=== PATIENT | male | born 1940 | race Caucasian/White ===

== ENCOUNTER 2020-01-30 21:53 | Emergency (ER) | payer MEDICARE, SELFPAY ==
[2020-01-30 21:57] VITALS: BP 185/86; PULSE 73; RESP 20; TEMP 36.4; O2SAT 98
--- NOTE | 2020-01-30 22:22 | ED.EPISTAXIS ---
HPI - Epistaxis General Chief complaint: Epistaxis Stated complaint: nose bleed Time Seen by Provider: 01/30/20 22:04 Source: RN notes reviewed History of Present Illness HPI Narrative: Patient presents emergency department from home for epistaxis. Patient states that yesterday morning he began to have a nosebleed out of his right nare. States that time he gone to [facility] and had a nasal clamp placed bleeding stopped on its own had any return home. States the nose began to bleed again last night and again placed a clamp with resolution of the symptoms. Patient states that he had had no bleeding till this evening when he began nosebleed around 6:00. At that time he put the clamp on and came to the hospital for further evaluation. Patient denies any bleeding on the left nare he states he is currently on a baby aspirin only he denies any trauma to the nose or any other symptoms. Related Data Home Medications Medication Instructions Recorded Confirmed aspirin [Aspirin Low Dose] 81 mg PO DAILY 01/30/20 atorvastatin 80 mg PO HS 01/30/20 metoprolol tartrate 25 mg PO DAILY 01/30/20 Allergies Allergy/AdvReac Type Severity Reaction Status Date / Time Penicillins Allergy Unknown Unknown Verified 01/30/20 21:57 Review of Systems Review of Systems: Narrative: Gen.: Denies fevers or chills HEENT: See HPI Neuro: Denies numbness, tingling, weakness Skin: Denies rash Endo: Denies DM PMFSH Past Medical History Medical History (Updated 01/30/20 @ 22:23 by Sharan Becerril DO) Hypertension Social History Social History (Updated 01/30/20 @ 22:23 by Sharan Becerril DO) Smoking status: Never smoker Exam Narrative: Exam Narrative: APPEARANCE: No acute distress, nontoxic, resting in bed EYES: EOMI HEENT: Normocephalic, atraumatic, no blood seen in left nare, dried blood in right nare with no active bleeding, or mucosa moist, no blood seen in posterior pharynx RESPIRATORY: No respiratory distress MUSCULOSKELETAl: Moves all extremities. NEURO: Awake and alert. Following commands, speech normal, no focal deficits SKIN:: Warm, dry. No rashes lesions or abrasions PSYCHIATRIC: Normal affect/mood, Course Course Emergency Course: Patient with no further bleeding while in the emergency department. Discussed with patient results of workup and diagnosis. Discussed need for follow-up with primary care, proper use of medication, and reasons to return to the emergency department. Patient understands and agrees to current treatment plan Vital Signs Vital signs: Vital Signs Temperature 97.6 F 01/30/20 21:57 Pulse Rate 73 01/30/20 21:57 Respiratory Rate 01/30/20 21:57 Blood Pressure 185/86 H 01/30/20 21:57 Pulse Oximetry 98 01/30/20 21:57 Temperature 97.6 F 01/30/20 21:57 Pulse Rate 73 01/30/20 21:57 Respiratory Rate 01/30/20 21:57 Blood Pressure 185/86 H 01/30/20 21:57 Pulse Oximetry 98 01/30/20 21:57 Discharge Plan Discharge Patient Disposition: Home, Self-Care Condition: Stable Instructions: Antibiotic Form, Nosebleed (ED) Additional Instructions: Return for any further nosebleed or any other symptoms of concern Prescriptions: New sodium chloride [Nicollet Nasal] 0.65 % aerosol,spray 2 spray NASAL TID 3 Days RF: 0 No Action atorvastatin 80 mg tablet 80 mg PO HS RF: 0 aspirin [Aspirin Low Dose] 81 mg Tablet,Delayed Release (Dr/Ec) 81 mg PO DAILY RF: 0 metoprolol tartrate 25 mg tablet 25 mg PO DAILY RF: 0 Follow-up/Referrals: Gino La MD [Physician] - (Follow-up in 2 to 3 days for further treatment and evaluation) PHYSICIAN NOT ON STAFF,NONSTAFF [Primary Care Provider] - Time of Disposition: 23:08
[2020-01-30 23:17] VITALS: BP 158/97; PULSE 66; RESP 20; O2SAT 96
== END 2020-01-30 23:20 | disposition home or self-care (01) ==
PROVIDERS: Emergency Provider Emergency Medicine
DX: R04.0 Epistaxis (principal); I10 Essential (primary) hypertension
CPT/HCPCS: 99283

== ENCOUNTER 2020-08-28 09:26 | Outpatient (CLI) | payer MEDICARE, SELFPAY ==
[2020-08-28 09:51] LABS: Basophils Percent Auto 0.2 % (0.2-1.2); Eosinophils Absolute Auto 0.1 K/mm3 (0-0.3); Eosinophils Percent Auto 1.5 % (0-4.4); Hematocrit 43.8 % (42.0-52.0); Hemoglobin 14.8 g/dL (14.0-18.0); Immature Granulocyte Absolute 0.02 K/mm3 (0.00-0.031); Immature Granulocyte Percent A 0.3 % (0-0.5); Lymphocytes Absolute Auto 2.71 K/mm3 (0.9-3.2); Lymphocytes Percent Auto 45.9 % (18.3-44.2); Mean Corpuscular HGB Conc 33.8 g/dl (32-36); Mean Corpuscular Hemoglobin 31.3 pg (26-34); Mean Corpuscular Volume 92.6 fl (80-100); Mean Platelet Volume 10.3 fl (7.4-10.4); Monocytes Absolute Auto 0.7 K/mm3 (0.1-0.6); Monocytes Percent Auto 12.4 % (2.6-8.5); Neutrophils Absolute Auto 2.4 K/mm3 (1.3-6.7); Neutrophils Percent Auto 39.7 % (45.5-73.1); Platelet Count Result 142 k/mm3 (150-375); Red Blood Count 4.73 M/mm3 (4.6-6.20); Red Cell Distribution Width 13.9 % (11.5-14.5); White Blood Count 5.9 K/mm3 (4.5-10.0)
[2020-08-28 10:07] LABS: Anion Gap 5 mmol/L (8-16); Blood Urea Nitrogen 19 mg/dL (9-20); Calcium 9.2 mg/dL (8.4-10.2); Carbon Dioxide 29 mmol/L (22-30); Chloride 107 mmol/L (98-107); Estimated Glomerular Filt Rate > 60; Glucose 121 mg/dL (75-110); Potassium 4.4 mmol/L (3.4-5.0); Sodium 141 mmol/L (137-145)
== END 2020-08-28 09:27 | disposition home or self-care (01) ==
PROVIDERS: PCP Internal Medicine; Visit Provider Internal Medicine Cardiovascular Disease
DX: I25.10 Atherosclerotic heart disease of native coronary artery without angina pectoris (principal); I48.91 Unspecified atrial fibrillation
CPT/HCPCS: 36415; 80048; 84443; 85025

== ENCOUNTER 2022-03-13 07:53 | Outpatient (CLI) | payer MEDICARE, SELFPAY ==
[2022-03-13 08:14] LABS: Basophils Percent Auto 0.4 % (0.2-1.2); Eosinophils Absolute Auto 0.1 K/mm3 (0-0.3); Eosinophils Percent Auto 1.3 % (0-4.4); Hematocrit 41.7 % (42.0-52.0); Hemoglobin 13.7 g/dL (14.0-18.0); Immature Granulocyte Absolute 0.02 K/mm3 (0.00-0.031); Immature Granulocyte Percent A 0.4 % (0-0.5); Lymphocytes Absolute Auto 2.06 K/mm3 (0.9-3.2); Lymphocytes Percent Auto 45.9 % (18.3-44.2); Mean Corpuscular HGB Conc 32.9 g/dl (32-36); Mean Corpuscular Hemoglobin 31.6 pg (26-34); Mean Corpuscular Volume 96.3 fl (80-100); Mean Platelet Volume 10.2 fl (7.4-10.4); Monocytes Absolute Auto 0.5 K/mm3 (0.1-0.6); Neutrophils Absolute Auto 1.8 K/mm3 (1.3-6.7); Platelet Count Result 145 k/mm3 (150-375); Red Blood Count 4.33 M/mm3 (4.6-6.20); Red Cell Distribution Width 13.8 % (11.5-14.5); White Blood Count 4.5 K/mm3 (4.5-10.0)
[2022-03-13 08:23] LABS: Alanine Aminotransferase 27 U/L (6-50); Albumin Level 4.5 g/dL (3.5-5.1); Alkaline Phosphatase 42 U/L (38-126); Anion Gap 7 mmol/L (8-16); Aspartate Amino Transferase 33 U/L (17-59); Bilirubin,Total 0.9 mg/dL (0.2-1.3); Blood Urea Nitrogen 14 mg/dL (9-20); Calcium 8.7 mg/dL (8.4-10.2); Carbon Dioxide 27 mmol/L (22-30); Chloride 107 mmol/L (98-107); Estimated Glomerular Filt Rate > 60; Glucose 122 mg/dL (65-110); Lactate Dehydrogenase 538 U/L (313-618); Potassium 4.3 mmol/L (3.4-5.0); Sodium 141 mmol/L (137-145)
== END 2022-03-13 07:54 | disposition home or self-care (01) ==
LOC: ANHLAB 07:57
PROVIDERS: PCP Internal Medicine
DX: C84.09 Mycosis fungoides, extranodal and solid organ sites (principal); Z79.899 Other long term (current) drug therapy
CPT/HCPCS: 36415; 80053; 83615; 85025

== ENCOUNTER 2022-05-20 07:56 | Outpatient (CLI) | payer MEDICARE, SELFPAY ==
[2022-05-20 08:36] LABS: Basophils Percent Auto 0.2 % (0.2-1.2); Eosinophils Absolute Auto 0.1 K/mm3 (0-0.3); Hematocrit 42.9 % (42.0-52.0); Immature Granulocyte Absolute 0.04 K/mm3 (0.00-0.031); Immature Granulocyte Percent A 0.8 % (0-0.5); Lymphocytes Absolute Auto 2.11 K/mm3 (0.9-3.2); Mean Corpuscular HGB Conc 32.6 g/dl (32-36); Mean Corpuscular Volume 98.2 fl (80-100); Mean Platelet Volume 10.1 fl (7.4-10.4); Monocytes Absolute Auto 0.7 K/mm3 (0.1-0.6); Monocytes Percent Auto 14.3 % (2.6-8.5); Neutrophils Absolute Auto 2.1 K/mm3 (1.3-6.7); Neutrophils Percent Auto 41.7 % (45.5-73.1); Platelet Count Result 155 k/mm3 (150-375); Red Blood Count 4.37 M/mm3 (4.6-6.20); Red Cell Distribution Width 14.1 % (11.5-14.5)
[2022-05-20 08:51] LABS: Alanine Aminotransferase 33 U/L (6-50); Albumin Level 4.7 g/dL (3.5-5.1); Alkaline Phosphatase 57 U/L (38-126); Anion Gap 16 mmol/L (8-16); Aspartate Amino Transferase 37 U/L (17-59); Bilirubin,Total 0.7 mg/dL (0.2-1.3); Blood Urea Nitrogen 16 mg/dL (9-20); Calcium 8.6 mg/dL (8.4-10.2); Carbon Dioxide 28 mmol/L (22-30); Chloride 99 mmol/L (98-107); Estimated Glomerular Filt Rate > 60; Glucose 130 mg/dL (65-110); Potassium 4.4 mmol/L (3.4-5.0); Sodium 143 mmol/L (137-145)
== END 2022-05-20 07:57 | disposition home or self-care (01) ==
LOC: ANHLAB 08:08
PROVIDERS: PCP Internal Medicine; Visit Provider Internal Medicine Cardiovascular Disease
DX: R94.39 Abnormal result of other cardiovascular function study (principal); I25.10 Atherosclerotic heart disease of native coronary artery without angina pectoris
CPT/HCPCS: 36415; 80053; 85025

== ENCOUNTER 2022-06-02 11:45 | Outpatient (CLI) | payer MEDICARE, SELFPAY ==
--- NOTE | ~2022-06-02 | XR_ITS ---
XR sacrum coccyx min 2V DATE: 06/02/2022 12:06 INDICATION: Coccyx pain for 2 months. No injury. TECHNIQUE: AP, angled AP and lateral views COMPARISON: None FINDINGS: No fracture or bone destruction of the sacrum or coccyx is evident. Normal alignment at the pubic symphysis and sacroiliac joints. IMPRESSION: Negative Reviewed, dictated and finalized at location B. IMPRESSION: Negative
== END 2022-06-02 11:46 | disposition home or self-care (01) ==
PROVIDERS: PCP Internal Medicine; Visit Provider Internal Medicine
DX: M53.3 Sacrococcygeal disorders, not elsewhere classified (principal)
CPT/HCPCS: 72220

== ENCOUNTER 2022-07-01 07:54 | Outpatient (CLI) | payer MEDICARE, SELFPAY ==
[2022-07-01 08:25] LABS: Anion Gap 14 mmol/L (8-16); Blood Urea Nitrogen 16 mg/dL (9-20); Calcium 9.1 mg/dL (8.4-10.2); Carbon Dioxide 28 mmol/L (22-30); Chloride 100 mmol/L (98-107); Estimated Glomerular Filt Rate > 60; Glucose 133 mg/dL (65-110); Potassium 4.1 mmol/L (3.4-5.0); Sodium 142 mmol/L (137-145)
== END 2022-07-01 07:55 | disposition home or self-care (01) ==
LOC: ANHLAB 07:55
PROVIDERS: PCP Internal Medicine; Visit Provider Internal Medicine Cardiovascular Disease
DX: I25.10 Atherosclerotic heart disease of native coronary artery without angina pectoris (principal)
CPT/HCPCS: 36415; 80048

== ENCOUNTER 2022-09-18 08:15 | Outpatient (CLI) | payer MEDICARE, SELFPAY ==
[2022-09-18 08:41] LABS: Basophils Percent Auto 0.2 % (0.2-1.2); Eosinophils Absolute Auto 0.1 K/mm3 (0-0.3); Eosinophils Percent Auto 1.7 % (0-4.4); Hemoglobin 14.3 g/dL (14.0-18.0); Immature Granulocyte Absolute 0.04 K/mm3 (0.00-0.031); Immature Granulocyte Percent A 0.9 % (0-0.5); Lymphocytes Absolute Auto 2.15 K/mm3 (0.9-3.2); Lymphocytes Percent Auto 46.7 % (18.3-44.2); Mean Corpuscular Hemoglobin 32.6 pg (26-34); Mean Corpuscular Volume 95.9 fl (80-100); Mean Platelet Volume 10.1 fl (7.4-10.4); Monocytes Absolute Auto 0.6 K/mm3 (0.1-0.6); Monocytes Percent Auto 13.9 % (2.6-8.5); Neutrophils Absolute Auto 1.7 K/mm3 (1.3-6.7); Neutrophils Percent Auto 36.6 % (45.5-73.1); Platelet Count Result 151 k/mm3 (150-375); Red Blood Count 4.38 M/mm3 (4.6-6.20); Red Cell Distribution Width 13.5 % (11.5-14.5); White Blood Count 4.6 K/mm3 (4.5-10.0)
[2022-09-18 08:52] LABS: Alanine Aminotransferase 30 U/L (6-50); Albumin Level 4.6 g/dL (3.5-5.1); Alkaline Phosphatase 45 U/L (38-126); Anion Gap 7 mmol/L (8-16); Aspartate Amino Transferase 31 U/L (17-59); Blood Urea Nitrogen 15 mg/dL (9-20); Carbon Dioxide 30 mmol/L (22-30); Chloride 105 mmol/L (98-107); Estimated Glomerular Filt Rate > 60; Glucose 117 mg/dL (65-110); Potassium 4.3 mmol/L (3.4-5.0); Sodium 142 mmol/L (137-145)
== END 2022-09-18 08:16 | disposition home or self-care (01) ==
LOC: ANHLAB 08:22
PROVIDERS: PCP Internal Medicine
DX: Z79.899 Other long term (current) drug therapy (principal)
CPT/HCPCS: 36415; 80053; 85025

== ENCOUNTER 2023-03-27 09:23 | Outpatient (CLI) | payer MEDICARE, SELFPAY ==
[2023-03-27 09:52] LABS: Anion Gap 6 mmol/L (8-16); Blood Urea Nitrogen 14 mg/dL (9-20); Calcium 9.2 mg/dL (8.4-10.2); Carbon Dioxide 30 mmol/L (22-30); Chloride 104 mmol/L (98-107); Estimated Glomerular Filt Rate > 60; Glucose 125 mg/dL (65-110); Potassium 4.4 mmol/L (3.4-5.0); Sodium 140 mmol/L (137-145)
== END 2023-03-27 09:24 | disposition home or self-care (01) ==
LOC: ANHLAB 09:25
PROVIDERS: PCP Internal Medicine; Visit Provider Internal Medicine Cardiovascular Disease
DX: I42.0 Dilated cardiomyopathy (principal)
CPT/HCPCS: 36415; 80048

== ENCOUNTER 2023-05-24 10:17 | Emergency (ER) | payer MEDICARE, SELFPAY ==
[2023-05-24 10:53] VITALS: BP 140/84; PULSE 120; RESP 16; TEMP 36.8; O2SAT 99
[2023-05-24] MEDS: LIDOCAINE HCL 2% JELLY 5 ML TUBE 1 APPLIC MUCOUS MEM (12:43)
--- NOTE | 2023-05-24 13:10 | ED.GENADULT ---
HPI - General Adult General Chief complaint: Nausea/Vomiting/Diarrhea Stated complaint: n/v/d Time Seen by Provider: 05/24/23 11:59 History of Present Illness HPI narrative: This is an 82-year-old male, with past history of hemorrhoids and A-fib on Xarelto, who presents emergency department complaining of painful hemorrhoids for the past 3 days. He states the hemorrhoids are painful, described as burning and intermittently sharp, rated 5-7/10. He has some bright red blood with wiping but has not had significant bleeding. He has no other complaints at this time. Related Data Home Medications Medication Instructions Recorded Confirmed metoprolol tartrate 25 mg tablet 25 mg PO DAILY 01/30/20 04/02/23 cetirizine 10 mg capsule (Allergy 10 mg PO DAILY PRN 04/02/23 04/02/23 Relief (cetirizine)) rivaroxaban 20 mg tablet (Xarelto) 20 mg PO DAILY 04/02/23 04/02/23 sacubitril 49 mg-valsartan 51 mg 1 tablet PO BID 04/02/23 04/02/23 tablet (Entresto) Allergies Allergy/AdvReac Type Severity Reaction Status Date / Time Penicillins Allergy Unknown Unknown Verified 04/02/23 14:20 Review of Systems Review of Systems: CONSTITUTIONAL: Denies fever, chills, or sweats. CARDIOVASCULAR: Denies chest pain, palpitations, or edema. RESPIRATORY: Denies cough or dyspnea. GASTROINTESTINAL: Loose stools with hemorrhoids and bright red blood when wiping denies abdominal pain, nausea, vomiting GENITOURINARY: Denies dysuria or hematuria. SKIN: Denies rash or itching. MUSCULOSKELETAL: Denies back pain, joint pain, or myalgia. NEUROLOGIC: Denies headache, numbness, dizziness, or weakness. PSYCHIATRIC: Denies anxiety or depression. PMFSH Past Medical History Medical History (Updated 05/24/23 @ 22:23 by Chidi Roa MD) Afib Hypertension Social History Social History Smoking status: Never smoker Alcohol intake: never Substance use: never Exam Narrative: GENERAL: Well-developed, well-nourished, and in no acute distress. HEAD: Normocephalic, atraumatic. EYES: PERRLA and EOMI. ENT: Nares clear, no rhinorrhea or epistaxis. Mucous membranes moist. Oropharynx without tonsillar hypertrophy exudate or other lesions. Bilateral TMs pearly valle nonbulging NECK: Supple. No adenopathy or masses. No carotid bruits or JVD CHEST: Clear to auscultation. No respiratory distress. No wheezes rales or rhonchi HEART: Regular rate and rhythm. No murmur heard. Normal peripheral pulses. ABDOMEN: Soft, nontender, nondistended, normal active bowel sounds. RECTAL: 2 external hemorrhoids are noted at the 3 and 9 o'clock position. An internal hemorrhoid is also noted. There is no significant erythema or gangrenous changes noted EXTREMITIES: Normal range of motion. No edema. SKIN: Warm, dry, no rash. NEURO: Alert and oriented x3. Moving all 4 limbs purposefully. PSYCH: Normal mood and affect. Course Course Emergency Course: 13:15 - I was able to reduce the patient's internal hemorrhoid without bleeding or significant pain. Will discharge with recommendations for hydrocortisone and general surgery follow-up. Discussed return and emergency precautions including signs/symptoms of significant bleeding and infection. The patient was offered IV fluids for his tachycardia. 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 He denies chest pain, shortness of breath or lightheadedness. Vital Signs Vital signs: Vital Signs Temperature 98.3 F 05/24/23 10:53 Pulse Rate 120 H 05/24/23 10:53 Respiratory Rate 16 05/24/23 10:53 Blood Pressure 140/84 05/24/23 10:53 Pulse Oximetry 99 05/24/23 10:53 Temperature 98.3 F 05/24/23 10:53 Pulse Rate 87 05/24/23 13:29 Respiratory Rate 16 05/24/23 13:29 Blood Pressure 120/71 05/24/23 13:29 Pulse Oximetry 98 05/24/23 13:29 Medical Decision Making MDM Narrative
[2023-05-24 13:29] VITALS: BP 120/71; PULSE 87; RESP 16; O2SAT 98
== END 2023-05-24 13:36 | disposition home or self-care (01) ==
PROVIDERS: Emergency Provider Preventive Medicine Aerospace Medicine; PCP Internal Medicine
DX: K64.8 Other hemorrhoids (principal); I48.91 Unspecified atrial fibrillation; I10 Essential (primary) hypertension; Z79.01 Long term (current) use of anticoagulants
CPT/HCPCS: 99283

== ENCOUNTER 2023-06-15 09:01 | Outpatient (CLI) | payer MEDICARE, SELFPAY ==
--- NOTE | 2023-06-15 09:10 | ECG_ITS ---
Measurements Intervals [place] Rate: 113 P: MS: 0 QRS: -29 QRSD: 111 T: 124 QT: 367 QTc: 504 Interpretive Statements ATRIAL FIBRILLATION WITH RAPID VENTRICULAR RESPONSE POOR R-WAVE PROGRESSION NONSPECIFIC T-WAVE ABNORMALITY ABNORMAL ECG NO PREVIOUS ECG AVAILABLE FOR COMPARISON Electronically Signed On 06-15-2023 13:36:36 CDT by Ziyad Parks M.D.
== END 2023-06-15 09:02 | disposition home or self-care (01) ==
LOC: ANHSURGERY 09:04
PROVIDERS: PCP Internal Medicine; Visit Provider Surgery
DX: I10 Essential (primary) hypertension (principal); Z01.818 Encounter for other preprocedural examination; R94.31 Abnormal electrocardiogram [ECG] [EKG]; I48.91 Unspecified atrial fibrillation
CPT/HCPCS: 93005

== ENCOUNTER 2023-06-18 00:51 | Day surgery (SDC) | payer MEDICARE, SELFPAY ==
[2023-06-11 09:50] VITALS: BMI 27.5
[2023-06-18 07:45] VITALS: BP 143/83; PULSE 119; RESP 20; TEMP 36; O2SAT 98
[2023-06-18] MEDS: LACTATED RINGERS 1,000 ML 150 ML IV CONT (07:47)
--- NOTE | 2023-06-18 08:59 | P.PNAN_ITS ---
Anes - Initial Pre Proc Eval Procedure: Operation Date: 06/18/23 09:00 Proposed Procedures p Screening Colonoscopy - Srinivasa Crabtree DO Date/Time: 06/18/23 08:59 Surgeon: Srinivasa Crabtree DO Pre Op Diagnosis: neoplasm screening Patient Data Age: 82 Gender: M Height: 1.91 m Weight: 97.5 kg Last Vital Signs Temp 96.8 F L 06/18/23 07:45 Pulse 119 H 06/18/23 07:45 Resp 20 06/18/23 07:45 BP 143/83 H 06/18/23 07:45 Pulse Ox 98 06/18/23 07:45 O2 Del Method Room Air 06/18/23 07:45 Allergies Allergy/AdvReac Type Severity Reaction Status Date / Time Penicillins Allergy Unknown LIP Verified 06/18/23 07:44 SWELLING Home Medications Medication Instructions Recorded Confirmed Type metoprolol tartrate 25 mg tablet 25 mg PO HS 01/30/20 06/18/23 History cetirizine 10 mg capsule (Allergy 10 mg PO DAILY PRN Allergy Symptoms 04/02/23 06/18/23 History Relief (cetirizine)) rivaroxaban 20 mg tablet (Xarelto) 20 mg PO DAILY 04/02/23 06/18/23 History sacubitril 49 mg-valsartan 51 mg 1 tablet PO BID 04/02/23 06/18/23 History tablet (Entresto) minerals 1 tablet PO DAILY 06/11/23 06/18/23 History Patient hx anesthesia problems: none Family hx anesthesia problems: none Results Review: All pre-operative results and documents have been reviewed as part of the pre- operative evaluation. [facility] Past Medical History Medical History (Updated 06/04/23 @ 13:59 by Laura Mauro) Afib Hypertension Surgical History Surgical History (Updated 06/04/23 @ 13:55 by Laura Mauro) S/P triple vessel bypass 2018 Social History Social History (Updated 06/04/23 @ 13:43 by Tasia Mdaera [facility]) Smoking packs per day: 2 Smoking cigarettes per day: 40.0 Years smoked: 24 Smoking pack-years: 48.00 Smoking status: Former smoker Tobacco type: cigarettes Additional smoking assessment comments: CONTINUES CIGAR 2/WEEK Alcohol intake: current Alcohol use details: 12 OZ/WEEK Substance use: never Substance use type: does not use Living arrangements: with family Additional living arrangements comments: Occupation/Education: retired Spiritual care concerns: No Anes - Eval Final PreProcedure Day of Procedure 06/18/23 08:59 Patient weight: normal Heart: irregular rhythm Lungs: clear to auscultation Airway: Mallampati scale class II Neurological: alert and oriented Last oral intake: >/= 8 hours ASA classification: III Emergent: no Anesthetic plan: proceed Anesthesia type and monitoring: general GIVS and standard monitoring Results Review: All pre-operative results and documents have been reviewed as part of the pre- operative evaluation. Informed Consent: The patient's anesthetic plan and its attendant risks and benefits were discussed with the patient/family/POA. Questions were solicited and answers provided to the satisfaction of the patient/family/POA.
--- NOTE | 2023-06-18 09:03 | PM.IMHP ---
H&P: HPI History of Present Illness Date/Time: 06/18/23 09:03 Chief Complaint: Internal hemorrhoids Narrative: This is an 82-year-old man who presents with intermittent prolapsing internal hemorrhoids. He was having significant discomfort with them but the hemorrhoids have since improved. He denies any rectal bleeding currently. He has had colonoscopies in the past. He now presents for follow-up colonoscopy due to the hemorrhoids. He denies family history of colon cancer. Review of Systems Review of Systems: All systems reviewed & are unremarkable except as noted in HPI and below Constitutional: Constitutional: Denies chills, Denies fever(s), Denies headache(s) and Denies weight loss Eyes: Eyes: Denies change in vision ENT: Denies dizziness, Denies headache(s), Denies neck mass and Denies throat swelling Cardiovascular: Cardiovascular: Denies chest pain, Denies lightheadedness and Denies dyspnea Respiratory: Respiratory: Denies cough, Denies dyspnea and Denies wheezing Gastrointestinal: Gastrointestinal: Denies abdominal pain, Denies change in bowel habits, Denies nausea and Denies vomiting Genitourinary: Genitourinary: Denies hematuria and Denies dysuria Musculoskeletal: Musculoskeletal: Reports as per HPI Integumentary/Breasts: Skin/Breast: Reports as per HPI Neurologic: Denies dizziness and Denies headache(s) Allergic/Immunologic: Allergic/Immunologic: Denies throat swelling and Denies wheezing [facility] Past Medical History Medical History (Updated 06/04/23 @ 13:59 by Laura Mauro) Afib Hypertension Surgical History Surgical History (Updated 06/04/23 @ 13:55 by Laura Mauro) S/P triple vessel bypass 2018 Social History Social History (Updated 06/04/23 @ 13:43 by Tasia Madera [facility]) Smoking packs per day: 2 Smoking cigarettes per day: 40.0 Years smoked: 24 Smoking pack-years: 48.00 Smoking status: Former smoker Tobacco type: cigarettes Additional smoking assessment comments: CONTINUES CIGAR 2/WEEK Alcohol intake: current Alcohol use details: 12 OZ/WEEK Substance use: never Substance use type: does not use Living arrangements: with family Additional living arrangements comments: Occupation/Education: retired Spiritual care concerns: No Meds Home Medications and Allergies Home Medications Medication Instructions Recorded Confirmed Type metoprolol tartrate 25 mg tablet 25 mg PO HS 01/30/20 06/18/23 History cetirizine 10 mg capsule (Allergy 10 mg PO DAILY PRN Allergy Symptoms 04/02/23 06/18/23 History Relief (cetirizine)) rivaroxaban 20 mg tablet (Xarelto) 20 mg PO DAILY 04/02/23 06/18/23 History sacubitril 49 mg-valsartan 51 mg 1 tablet PO BID 04/02/23 06/18/23 History tablet (Entresto) minerals 1 tablet PO DAILY 06/11/23 06/18/23 History Allergies Allergy/AdvReac Type Severity Reaction Status Date / Time Penicillins Allergy Unknown LIP Verified 06/18/23 07:44 SWELLING Vital Signs Vital Signs - 24 hr 06/18/23 07:45 Temperature 36.0 C L Pulse Rate 119 H Respiratory Rate 20 Blood Pressure 143/83 H Pulse Oximetry 98 Oxygen Delivery Room Air Exam Const: General: no acute distress and alert Orientation/consciousness: patient oriented x3 HENMT: Head: normocephalic and atraumatic Ears: hearing grossly normal bilaterally Face/Nose/Sinus: Normal nares present Mouth: Yes Normal oral and palatal mucosa present Eyes: Periorbital: periorbital findings normal Sclera: sclerae normal EOM: EOMs intact bilaterally Neck: Neck: normal visual inspection, no lymphadenopathy and trachea midline Chest: Chest palpation & inspection: normal inspection of the chest Resp: Effort & Inspection: normal respiratory effort Auscultation: clear to auscultation bilaterally Cardio: Jugular venous distension: no JVD Rate: regular rate Rhythm: regular rhythm Heart sounds: S1 normal heart sound present and S2
[2023-06-18 09:28] VITALS: BP 103/64; PULSE 97; RESP 27; O2SAT 97
[2023-06-18 09:38] VITALS: BP 97/52; PULSE 89; RESP 21; O2SAT 95
[2023-06-18 09:48] VITALS: BP 117/79; PULSE 100; RESP 23; O2SAT 97
== END 2023-06-18 09:59 | disposition home or self-care (01) ==
PROVIDERS: PCP Internal Medicine; Visit Provider Surgery
PROC: 0DJD8ZZ Inspection of Lower Intestinal Tract, Via Natural or Artificial Opening Endoscopic (ICD-10-PCS; CPT 45378; principal; 2023-06-18 09:00)
DX: K64.2 Third degree hemorrhoids (principal); K57.30 Diverticulosis of large intestine without perforation or abscess without bleeding; I48.91 Unspecified atrial fibrillation; I10 Essential (primary) hypertension; Z72.0 Tobacco use; Z79.01 Long term (current) use of anticoagulants
CPT/HCPCS: 45378; 93005; J2704; J7120

== ENCOUNTER 2023-06-22 01:22 | Day surgery (SDC) | payer MEDICARE, SELFPAY ==
[2023-06-12 08:38] VITALS: BMI 27.5
--- NOTE | 2023-06-12 08:58 | PC.NURSE ---
Report to the Outpatient Waiting Room, entrance under the green pavilion located off [facility], at time __7:00AM on date _06/22/23 . Planned Procedure Time: __9:00AM . Time changes happen often and if your time is changed the preop area will call you the afternoon before. - You and your visitor will be asked to self-screen and do not enter if you have any COVID symptoms. - A mask is optional within the hospital at this time. Patients may have clear liquids (water, carbonated beverages, clear teas, apple juice) until 3 hours prior to surgery with a maximum of 20 ounces. - No food from midnight until time of surgery. Take the following medications with a SIP of water the morning of surgery: ____NONE DO NOT STOP ANY OF YOUR OTHER PRESCRIPTION MEDICATIONS PRIOR TO SURGERY ?EXCEPT THE FOLLOWING Medications to discontinue per physician ___HOLD XERALTO PER DR SCHMIDT-PATIENT CALLING TO CONFIRM HOLD ALL VITAMINS/SUPPLEMENTS 3 DAYS PRE-OP PER ANESTHESIA Date to take last dose___06/18/23 Please no make-up, nail tamazight, hairspray, perfume, deodorant, or body powder the day of surgery. No jewelry (including any body piercings) or valuables the day of surgery, leave them at home. Please take a shower or bath the night before, or the morning of, surgery with an antibacterial soap. Wear comfortable, loose fitting clothing. Children are encouraged to wear pajamas. - Jewelry must be removed prior to entering the operating room. Rings and piercings that are not removed may be cut off. - The hospital will not accept responsibility for valuables. - Please leave all valuables, including medications, at home the day of surgery. If you are going home after surgery, a licensed passenger coach driver must drive you home. - NO public transportation without another adult if you receive anesthesia. - We recommend that an adult stay with you for 24 hours following discharge. - We also recommend that you do not drive, make important decision, drink alcoholic beverages, or take any drugs that were not prescribed by your health care provider for at least 24 hours after your discharge time. For Pediatric surgeries, we recommend two adults accompany the child home. Follow any additional instructions given to you from your surgeon. If you or anyone in your household have experienced Covid symptoms in the past week, please notify your surgeon or the nurse liaison at the phone number below for possible testing. Telephone instructions given to __PATIENT and asked if any additional questions and then verbalized understanding. Patient advised to call surgeon office or pre surgery nurse liaison [phone] if any additional questions.
[2023-06-22] VITALS (8 sets, daily range): BP systolic 124–164; BP diastolic 57–100; PULSE 65–113; RESP 13–20; TEMP 36.2–36.6; O2SAT 95–99
[2023-06-22] MEDS: KETOROLAC 15 MG/ML VIAL (*BKC) IV PUSH (07:15)
[2023-06-22] MEDS: ACETAMINOPHEN 500 MG TABLET 1000 MG PO (07:15)
[2023-06-22] MEDS: LACTATED RINGERS 1,000 ML 30 ML IV CONT (07:48)
--- NOTE | 2023-06-22 08:03 | P.PNAN_ITS ---
Anes - Initial Pre Proc Eval Procedure: Operation Date: 06/22/23 09:00 Proposed Procedures p Excisional Hemorrhoidectomy Times Three - Tim Patterson MD Date/Time: 06/22/23 08:03 Surgeon: Tim Patterson MD Pre Op Diagnosis: painful bleeding internal and external hemorrhoids Patient Data Age: 82 Gender: M Height: 1.91 m Weight: 98.9 kg Last Vital Signs Temp 97.8 F 06/22/23 07:00 Pulse 113 H 06/22/23 07:00 Resp 18 06/22/23 07:00 BP 151/96 H 06/22/23 07:00 Pulse Ox 99 06/22/23 07:00 O2 Del Method Room Air 06/22/23 07:00 Allergies Allergy/AdvReac Type Severity Reaction Status Date / Time Penicillins Allergy Unknown LIP Verified 06/22/23 07:44 SWELLING Home Medications Medication Instructions Recorded Confirmed Type metoprolol tartrate 25 mg tablet 25 mg PO HS 01/30/20 06/22/23 History cetirizine 10 mg capsule (Allergy 10 mg PO DAILY PRN Allergy Symptoms 04/02/23 06/22/23 History Relief (cetirizine)) rivaroxaban 20 mg tablet (Xarelto) 20 mg PO DAILY 04/02/23 06/22/23 History sacubitril 49 mg-valsartan 51 mg 1 tablet PO BID 04/02/23 06/22/23 History tablet (Entresto) minerals 1 tablet PO DAILY 06/11/23 06/22/23 History Patient hx anesthesia problems: none Family hx anesthesia problems: none Results Review: All pre-operative results and documents have been reviewed as part of the pre- operative evaluation. [facility] Past Medical History Medical History (Updated 06/04/23 @ 13:59 by Laura Mauro) Afib Hypertension Surgical History Surgical History (Updated 06/04/23 @ 13:55 by Laura Mauro) S/P triple vessel bypass 2018 Social History Social History (Updated 06/04/23 @ 13:43 by Tasia Madera [facility]) Smoking packs per day: 2 Smoking cigarettes per day: 40.0 Years smoked: 24 Smoking pack-years: 48.00 Smoking status: Former smoker Tobacco type: cigarettes Additional smoking assessment comments: CONTINUES CIGAR 2/WEEK Alcohol intake: current Alcohol use details: 12 OZ/WEEK Substance use: never Substance use type: does not use Living arrangements: with family Additional living arrangements comments: Occupation/Education: retired Spiritual care concerns: No Anes - Eval Final PreProcedure Day of Procedure 06/22/23 08:03 Patient weight: normal Heart: irregular rhythm Lungs: clear to auscultation Airway: Mallampati scale class II Neurological: alert and oriented Last oral intake: >/= 8 hours ASA classification: III Emergent: no Anesthetic plan: proceed Anesthesia type and monitoring: general ETT and standard monitoring Results Review: All pre-operative results and documents have been reviewed as part of the pre- operative evaluation. Informed Consent: The patient's anesthetic plan and its attendant risks and benefits were discussed with the patient/family/POA. Questions were solicited and answers provided to the satisfaction of the patient/family/POA.
--- NOTE | 2023-06-22 09:14 | WPDHPUPDATE1 ---
History and Physical Update Update Date/Time: 06/22/23 09:14 History and Physical has been reviewed, including an updated exam of the patient. There are NO changes in the patient's condition. Risks, benefits, and alternatives have been discussed and questions answered. Patient agrees to proceed with procedure.
[2023-06-22] MEDS: ceFAZolin 2 GM/D5W 50 ML 2 GM/50 ML BAG IVPB (09:29)
[2023-06-22] MEDS: LIDO 1%/EPINEPHRINE 1:100,000 50 ML VIAL INFILTRATE (10:27)
[2023-06-22] MEDS: BUPivacaine HCL 0.5% PF 30 ML VIAL INFILTRATE (11:25)
[2023-06-22] MEDS: LIDOCAINE HCL 2% GEL UROJET 10 ML PKG MUCOUS MEM (11:27)
--- NOTE | 2023-06-22 11:52 | W.PM.PROC2 ---
Procedure Note - Detailed Date of Procedure 06/22/23 Pre-op Diagnosis painful bleeding internal and external hemorrhoids Post-op Diagnosis Same Procedure Performed Excisional hemorrhoidectomy x4 Surgeon Tim Patterson MD Tool Lathe Operator MELANI Kramer Anesthesia General Indications Patient is an 82-year-old gentleman who has had longstanding bleeding from prolapsing internal hemorrhoids. Had a colonoscopy recently which showed no neoplasms in the colon just some diverticula in the sigmoid. Large internal hemorrhoids were seen. He presents now for excisional hemorrhoidectomy this large bleeding internal hemorrhoids. Findings Patient large bulky internal hemorrhoids which were prolapsed located at the 2, 4, 7, 11 o'clock positions. All 4 of these hemorrhoids were excised. Description of Procedure After informed consent was obtained patient brought to the operating room was placed initially supine on the gurney then turned into the prone aashish-knife position on operating table. Anesthesia felt that he was having issues with ventilating in the prone position and so he was turned back into the supine position on the gurney which case his tidal volumes improved. At this point we decided to perform the surgery in the supine lithotomy position and high stirrups. Patient was transferred back to the operating table and placed in high stirrups. The perianal region was then prepped and draped in usual sterile fashion. A time-out was then performed correctly identifying the patient as well as procedure to be performed verifying was given perioperative IV antibiotics. I then sewed 1st started by carefully dilating the anal sphincters with a lubricated speculum. A circumferential evaluation of the anal canal and distal rectum was then performed. Patient for large bulky internal hemorrhoids located at the 2, 4, 7, 11 o'clock positions. No other anal canal or distal rectal masses were seen. The 1st started by excising off the largest of these hemorrhoids which was at the 7 o'clock position on the patient's right posterior side with the patient supine. An Allis clamp was used to hold the hemorrhoid tissue in pull it out towards the anal verge. A 2-0 chromic suture was then placed at the apex of the hemorrhoid above the dentate line. The scalp was then used to incise the tissue on both sides the hemorrhoid continuing in a kourtney configuration up to the perianal skin. Then utilizing a combination of electrocautery and scissor dissection I then excised off the hemorrhoid tissue making sure not to damage the internal or external sphincter muscles. Once the hemorrhoid tissue was completely excised off it was labeled as hemorrhoid 7 o'clock and sent to pathology. The 2-0 chromic suture placed at the apex of the hemorrhoid was then run in a locking fashion to the perianal skin. At that point I then transition to using 3-0 Vicryl suture to approximate the perianal skin edges and closed the incision completely. In a similar fashion the hemorrhoid tissue at the 11, 2 and 4 o'clock positions were excised out using the same technique and same sutures. All 4 hemorrhoids were sent to pathology labeled with the respective positions separately. In total for hemorrhoids were excised. I was finished I then anal speculum into the anal canal and irrigated out the anal canal. The anal opening was not strictured in any way. I then placed a lidocaine jelly soaked piece of Gelfoam into the anal canal. A circumferential perianal block was then administered utilizing 1% lidocaine mixed with 0.5% Marcaine with some epinephrine. I also injected a bilateral pudendal nerve block as well. There was then cleaned and then dressing and disposable underwear was placed. The patient tolerated the procedure well no complications. All sponges, needles, and instrument counts were correct at the end procedure. EBL was _50__cc. The patient was awakened and taken to recovery in stable and satisfactory cond
--- NOTE | 2023-06-22 13:31 | SUR.PHASEII ---
PATIENT GIVEN 4 X 4'S, ABD'S, PANTIES.
== END 2023-06-22 13:42 | disposition home or self-care (01) ==
PROVIDERS: PCP Internal Medicine; Visit Provider Surgery
PROC: (CPT 46260; principal; 2023-06-22 09:00)
DX: K64.2 Third degree hemorrhoids (principal); K64.4 Residual hemorrhoidal skin tags; K64.8 Other hemorrhoids; I10 Essential (primary) hypertension; I48.91 Unspecified atrial fibrillation; F17.290 Nicotine dependence, other tobacco product, uncomplicated; Z79.01 Long term (current) use of anticoagulants; Z87.19 Personal history of other diseases of the digestive system; Z95.1 Presence of aortocoronary bypass graft
CPT/HCPCS: 46260; 88304; A9270; J0330; J0690; J1100; J1885; J2405; J2704; J3010; J7120

== ENCOUNTER 2025-05-01 14:00 | Outpatient (RCR) | payer MEDICARE, SELFPAY ==
--- NOTE | 2025-03-24 16:12 | OPREHPOC ---
Outpatient Therapy Plan of Care This is a Multidisciplinary Plan of Care that may contain components documented by all disciplines (PT, OT, and ST.) PT Problem 1 PT Problem #1 Knowledge Deficit PT Goal 1 Goal / Goal Update [place] with HEP Target Visit 4 PT Problem 2 PT Problem #2 Impaired Range of Motion PT Goal 1 Goal / Goal Update 1. Demonstrate 35 degrees of terry hip abduction 2. Demonstrate 10 degrees terry hip extension Target Visit 6 PT Problem 3 PT Problem #3 Impaired Gait PT Goal 1 Goal / Goal Update Ambulate with even stride length bilaterally Target Visit 6
--- NOTE | 2025-03-24 16:13 | PTOPEVAL1 ---
Assessment and note entered by Rex Palomino, PT Evaluation Information Assessment Status Evaluation Diagnosis M16.0 ICD-10 Condition Codes (PT) Pain in right hip M25.551,Pain in left hip M25.552 Onset Chronic Subjective Information Reports that he has been having pain for a long time. He most recently noticed increased pain in terry anterior thighs. Reports that he had a medrol dose pack and it seemed to see some temporary improvement. Pain is mostly initiated with the beginning of steps. Right thigh pain seems to be a little more prevalent than left side. Started a heart medication and feels that they are contributing. Reported Pain Level Pain Score 0: Self Report Assessment PT Clinical Summary Patient presents with rigidity in hip limiting hip mobility ad gait progression. Pain distribution consistent with hip impingement. Patient is good from a strength perspective and needs to emphasize functional hip mobility at this time. Will benefit form skilled therapy to address these deficits. Plan of Care Interventions Gait Training,Manual Therapy,Neuro Re-education, Therapeutic Activities,Therapeutic Exercise PT Services Indicated Yes Treatment Frequency and 1-2x/week for 6 visits Duration These treatments will address the objective and functional deficits as defined above. The patient will be advanced safely and appropriately in order for the patient to progress towards his/her prior level of function. Additional exercises will be introduced and as well as a comprehensive home exercise program upon discharge, if needed, ?to ensure carryover of functional gains achieved in the clinic. This treatment plan has been reviewed and agreement upon by the patient.
--- NOTE | 2025-05-01 14:59 | OPREHPOC ---
Outpatient Therapy Plan of Care This is a Multidisciplinary Plan of Care that may contain components documented by all disciplines (PT, OT, and ST.) PT Problem 1 PT Problem #1 Knowledge Deficit PT Goal 1 Goal / Goal Update [place] with HEP Target Visit 4 Progress Met PT Problem 2 PT Problem #2 Impaired Range of Motion PT Goal 1 Goal / Goal Update 1. Demonstrate 35 degrees of terry hip abduction 2. Demonstrate 10 degrees terry hip extension Target Visit 6 Progress Met PT Problem 3 PT Problem #3 Impaired Gait PT Goal 1 Goal / Goal Update Ambulate with even stride length bilaterally Target Visit 6 Progress Not Met
--- NOTE | 2025-05-01 14:59 | PTOPDC ---
Assessment and note entered by Rex Palomino, PT Evaluation Information Assessment Status Discharge Diagnosis M16.0 ICD-10 Condition Codes (PT) Pain in right hip M25.551,Pain in left hip M25.552 Onset Chronic Subjective Information Reports that overall therapy has really helped. He has noted improved mobility but when he has to do a lot of walking he has increased pain. Feels he has a good understanding of things to work on. Feels comfortable with his HEP and suitable for discharge at this time. Reported Pain Level Pain Score 0: Self Report Assessment PT Clinical Summary Patient has seen ROM improvement in hips with resultant reduction in low back pain and knee pain . He continues to have occasional terry thigh pain. He demonstrates understanding of HEP and importance of continuity. Plan of Care PT Services Indicated Yes
== END 2025-05-01 16:44 | disposition home or self-care (01) ==
LOC: ANHPT 14:00
PROVIDERS: PCP Internal Medicine; Visit Provider Orthopaedic Surgery
DX: M16.0 Bilateral primary osteoarthritis of hip (principal)
CPT/HCPCS: 97110; 97140; 97161; 97530